=== PATIENT | female | born 1980 | race Two or more races ===

== ENCOUNTER → 2023-02-14 | Emergency (ER) | payer OTHER ==
[~2023-02-14] VITALS: Ht 157.5 cm; Wt 93.9 kg
[~2023-02-14] MED LIST: CAPTOPRIL50 MG PO; LABETALOL 21 MG/1 ML IV
== END | disposition home or self-care (01) ==
LOC: ER 11:19
DX: T78.1XXA Other adverse food reactions, not elsewhere classified, initial encounter (principal); X58.XXXA Exposure to other specified factors, initial encounter; B00.9 Herpesviral infection, unspecified

== ENCOUNTER 2023-08-27 16:52 | Emergency (ER) | payer OTHER ==
[~2023-08-27] VITALS: Ht 157.5 cm; Wt 89.8 kg
[2023-08-27 18:29] LABS: HEMOGLOBIN 13.6 g/dL (12.0-15.00); MEAN CELL VOLUME 82.3 fL (80.00-100.00); PLATELET COUNT 295 K/uL (150-450); RED BLOOD COUNT 4.86 M/uL (4.00-6.00); RED CELL DISTRIBUTION WIDTH 14.7 % (11.5-14.5)
[2023-08-27] MEDS ORDERED: MEDROLPACK PO (19:56)
[2023-08-27] MEDS ORDERED: ZITHROMAX500 MG PO (19:56)
[2023-08-28] MEDS ORDERED: XOPENEX CO1.25 MG/0. IH (17:57)
[2023-08-28] MEDS ORDERED: ONDANSETRON HCL4 MG PO (17:57)
[2023-08-28] MEDS ORDERED: PEPCID AC20 MG PO (17:57)
[2023-08-28] MEDS ORDERED: IPRATROPIU0.2 MG/1 M IH (17:57)
== END 2023-08-27 20:19 | disposition home or self-care (01) ==
LOC: ER 16:53
PROVIDERS: General Practice
DX: J45.901 Unspecified asthma with (acute) exacerbation (principal); R06.02 Shortness of breath; R05.8 Other specified cough; I10 Essential (primary) hypertension

== ENCOUNTER 2023-08-28 11:56 | Emergency (ER) | payer OTHER ==
[~2023-08-28] VITALS: Ht 157.5 cm; Wt 89.4 kg
[~2023-08-28 11:56] MED LIST changes: +MEDROLPACK PO; +ZITHROMAX500 MG PO
[2023-08-28 16:21] LABS: URINE APPEARANCE Clear; URINE BILIRRUBIN Negative (NEGATIVE); URINE COLOR Yellow; URINE GLUCOSE Negative (NEGATIVE); URINE LEUKOCYTE Negative; URINE NITRATE Negative; URINE PROTEIN Negative (NEGATIVE); URINE UROBILINOGEN 0.2 E.U./dl
[2023-08-28 16:23] LABS: URINE BACTERIA 192.7 uL (0.0-1933); URINE EPITHELIAL CELLS 10.5 uL (0.0-38.8); URINE RBC 13.2 uL (0.0-20.8); URINE WBC 4.1 uL (0.0-23.2)
[2023-08-28 16:24] LABS: URINE BLOOD TRACES
[2023-08-28 16:46] LABS: CALCIUM 9.8 mg/dL (8.5-10.1); CREATININE SERUM 0.7 mg/dL (0.55-1.02); GFR 92.68; POTASSIUM 3.83 mEq/L (3.5-5.1)
[2023-08-28] MEDS ORDERED: XOPENEX CO1.25 MG/0. IH (17:57)
[2023-08-28] MEDS ORDERED: IPRATROPIU0.2 MG/1 M IH (17:57)
[2023-08-28] MEDS ORDERED: PEPCID AC20 MG PO (17:57)
[2023-08-28] MEDS ORDERED: ONDANSETRON HCL4 MG PO (17:57)
== END 2023-08-28 22:55 | disposition home or self-care (01) ==
LOC: ER 11:56
PROVIDERS: Nurse Practitioner Family
DX: R73.9 Hyperglycemia, unspecified (principal); J45.909 Unspecified asthma, uncomplicated

== ENCOUNTER 2023-09-03 11:21 | Emergency (ER) | payer OTHER ==
[~2023-09-03] VITALS: Ht 157.5 cm; Wt 89.4 kg
[~2023-09-03 11:21] MED LIST changes: +IPRATROPIU0.2 MG/1 M IH; +ONDANSETRON HCL4 MG PO; +PEPCID AC20 MG PO; +XOPENEX CO1.25 MG/0. IH
[2023-09-03 14:10] LABS: HEMATOCRIT 40.5 % (36.0-45.00); HEMOGLOBIN 13.6 g/dL (12.0-15.00); MEAN CELL VOLUME 83.3 fL (80.00-100.00); MEAN CORPUSCULAR HEMOGLOBIN 27.9 pg (27.00-32.0); MEAN CORPUSCULAR HGB CONC 33.5 g/dl (32.0-36.0); PLATELET COUNT 283 K/uL (150-450); RED BLOOD COUNT 4.87 M/uL (4.00-6.00); RED CELL DISTRIBUTION WIDTH 14.2 % (11.5-14.5)
[2023-09-03 14:44] LABS: ALBUMIN 3.4 gm/dL (3.4-5.0); BILIRUBIN TOTAL 0.44 mg/dL (0.3-1.2); CALCIUM 9.1 mg/dL (8.5-10.1); CREATININE SERUM 0.68 mg/dL (0.55-1.02); GFR 95.83; GLOBULINA 4.2 G/DL (2.4-3.5); POTASSIUM 3.75 mEq/L (3.5-5.1); TOTAL PROTEIN 7.6 gm/dL (6.4-8.2)
== END 2023-09-03 19:46 | disposition home or self-care (01) ==
LOC: ER 11:22
PROVIDERS: General Practice
DX: R53.81 Other malaise (principal); I16.9 Hypertensive crisis, unspecified; I10 Essential (primary) hypertension

== ENCOUNTER 2023-10-02 10:52 | Emergency (ER) | payer OTHER ==
[~2023-10-02] VITALS: Ht 157.5 cm; Wt 94.3 kg
[2023-10-02] MEDS ORDERED: HYZAAR 100-251 EACH (11:30)
[2023-10-02] MEDS ORDERED: CARDURA1 MG (11:31)
[2023-10-02 14:02] LABS: HEMATOCRIT 40.6 % (36.0-45.00); HEMOGLOBIN 13.7 g/dL (12.0-15.00); MEAN CELL VOLUME 81.4 fL (80.00-100.00); MEAN CORPUSCULAR HEMOGLOBIN 27.5 pg (27.00-32.0); MEAN CORPUSCULAR HGB CONC 33.8 g/dl (32.0-36.0); PLATELET COUNT 287 K/uL (150-450); RED BLOOD COUNT 4.98 M/uL (4.00-6.00); RED CELL DISTRIBUTION WIDTH 14.1 % (11.5-14.5)
[2023-10-02] MEDS ORDERED: MONTELUKAST SOD10 MG PO (14:52)
== END 2023-10-02 15:01 | disposition home or self-care (01) ==
LOC: ER 10:52
PROVIDERS: General Practice
DX: J06.9 Acute upper respiratory infection, unspecified (principal); I10 Essential (primary) hypertension; Z20.822 Contact with and (suspected) exposure to COVID-19

== ENCOUNTER 2023-10-11 11:02 | Emergency (ER) | payer OTHER ==
[~2023-10-11] VITALS: Ht 157.5 cm; Wt 92.5 kg
[~2023-10-11 11:02] MED LIST changes: +CARDURA1 MG; +HYZAAR 100-251 EACH; +MONTELUKAST SOD10 MG PO
[2023-10-11] MEDS ORDERED: CEFTRIAXONE SODIUM 1,000 MG VIAL IM STA (11:39)
== END 2023-10-11 13:34 | disposition home or self-care (01) ==
LOC: ER 11:02
DX: J06.9 Acute upper respiratory infection, unspecified (principal); J03.90 Acute tonsillitis, unspecified; R53.81 Other malaise; Z20.822 Contact with and (suspected) exposure to COVID-19; I10 Essential (primary) hypertension

== ENCOUNTER 2023-10-22 09:17 | Emergency (ER) | payer OTHER ==
[~2023-10-22] VITALS: Ht 157.5 cm; Wt 94.3 kg
[2023-10-22] MEDS ORDERED: COZAAR50 MG PO (09:27)
[2023-10-22] MEDS ORDERED: TOPROL XL100 M1 PO (09:27)
[2023-10-22] MEDS ORDERED: CARDURA1 MG PO (09:28)
[2023-10-22] MEDS ORDERED: KETOROLAC TROMETHAMINE 30 MG VIAL IM STA (10:18)
[2023-10-22] MEDS ORDERED: CEFTRIAXONE SODIUM 1,000 MG VIAL IM STA (10:18)
== END 2023-10-22 10:44 | disposition home or self-care (01) ==
LOC: ER 09:17
DX: J03.90 Acute tonsillitis, unspecified (principal)

== ENCOUNTER 2023-10-30 14:39 | Emergency (ER) | payer OTHER ==
[~2023-10-30] VITALS: Ht 152.4 cm; Wt 92.5 kg
[~2023-10-30 14:39] MED LIST changes: +CARDURA1 MG PO; +COZAAR50 MG PO; +TOPROL XL100 M1 PO
[2023-10-30 16:22] LABS: HEMATOCRIT 37.9 % (36.0-45.00); HEMOGLOBIN 12.8 g/dL (12.0-15.00); MEAN CELL VOLUME 81.8 fL (80.00-100.00); MEAN CORPUSCULAR HEMOGLOBIN 27.6 pg (27.00-32.0); MEAN CORPUSCULAR HGB CONC 33.8 g/dl (32.0-36.0); PLATELET COUNT 348 K/uL (150-450); RED BLOOD COUNT 4.63 M/uL (4.00-6.00); RED CELL DISTRIBUTION WIDTH 13.5 % (11.5-14.5)
[2023-10-30 16:24] LABS: PH,URINE 6.5 (5.0-8.0); URINE APPEARANCE Clear; URINE BILIRRUBIN Negative (NEGATIVE); URINE BLOOD Trace; URINE COLOR Yellow; URINE GLUCOSE Negative (NEGATIVE); URINE LEUKOCYTE Negative; URINE NITRATE Negative; URINE PROTEIN Negative (NEGATIVE); URINE UROBILINOGEN 0.2 E.U./dl
[2023-10-30 16:26] LABS: URINE BACTERIA 21.3 uL (0.0-1933); URINE EPITHELIAL CELLS 4.6 uL (0.0-38.8); URINE RBC 8.1 uL (0.0-20.8)
[2023-10-30 16:29] LABS: URINE WBC 0.6 uL (0.0-23.2)
[2023-10-30 16:35] LABS: CALCIUM 9.5 mg/dL (8.5-10.1); CREATININE SERUM 0.55 mg/dL (0.55-1.02); GFR 122.42; POTASSIUM 3.58 mEq/L (3.5-5.1)
== END 2023-10-30 18:11 | disposition home or self-care (01) ==
LOC: ER 14:39
PROVIDERS: General Practice
DX: R00.2 Palpitations (principal)

== ENCOUNTER 2023-11-07 00:35 | Emergency (ER) | payer OTHER ==
[~2023-11-07] VITALS: Ht 157.5 cm; Wt 92.5 kg
== END 2023-11-07 03:00 ==
LOC: ER 00:35
DX: R00.2 Palpitations (principal)

== ENCOUNTER 2023-11-14 09:13 | Emergency (ER) | payer OTHER ==
[~2023-11-14] VITALS: Ht 157.5 cm; Wt 92.5 kg
== END 2023-11-14 10:19 | disposition home or self-care (01) ==
LOC: ER 09:13
DX: R00.2 Palpitations (principal); I10 Essential (primary) hypertension

== ENCOUNTER → 2023-11-20 | Emergency (ER) | payer OTHER ==
[~2023-11-20] VITALS: Ht 157.5 cm; Wt 92.5 kg
== END | disposition left against medical advice (07) ==
LOC: ER 16:23
DX: Z53.21 Procedure and treatment not carried out due to patient leaving prior to being seen by health care provider (principal)

== ENCOUNTER 2023-11-22 19:44 | Emergency (ER) | payer OTHER ==
[~2023-11-22] VITALS: Ht 152.4 cm; Wt 68.0 kg
== END 2023-11-22 21:49 | disposition home or self-care (01) ==
LOC: ER 19:45
DX: R00.1 Bradycardia, unspecified (principal)

== ENCOUNTER 2023-12-12 10:51 | Emergency (ER) | payer OTHER ==
[~2023-12-12] VITALS: Ht 157.5 cm; Wt 92.5 kg
[2023-12-12 13:38] LABS: HEMATOCRIT 39.7 % (36.0-45.00); HEMOGLOBIN 13.3 g/dL (12.0-15.00); MEAN CELL VOLUME 81.2 fL (80.00-100.00); MEAN CORPUSCULAR HEMOGLOBIN 27.1 pg (27.00-32.0); MEAN CORPUSCULAR HGB CONC 33.4 g/dl (32.0-36.0); PLATELET COUNT 304 K/uL (150-450); RED BLOOD COUNT 4.89 M/uL (4.00-6.00); RED CELL DISTRIBUTION WIDTH 14.1 % (11.5-14.5)
[2023-12-12 14:04] LABS: ALBUMIN 3.4 gm/dL (3.4-5.0); BILIRUBIN TOTAL 0.21 mg/dL (0.3-1.2); CALCIUM 8.6 mg/dL (8.5-10.1); CREATININE SERUM 0.53 mg/dL (0.55-1.02); GFR 127.12; GLOBULINA 4.2 G/DL (2.4-3.5); POTASSIUM 3.31 mEq/L (3.5-5.1); TOTAL PROTEIN 7.6 gm/dL (6.4-8.2)
== END 2023-12-12 15:24 | disposition home or self-care (01) ==
LOC: ER 10:51
PROVIDERS: General Practice
DX: I10 Essential (primary) hypertension (principal); G47.30 Sleep apnea, unspecified

== ENCOUNTER 2024-06-11 09:34 | Emergency (ER) | payer OTHER ==
[~2024-06-11] VITALS: Ht 157.5 cm; Wt 93.9 kg
[2024-06-11] MEDS ORDERED: LEVALBUTEROL HCL 1.25 MG/3 ML SOLUTION IH ONE (10:45)
[2024-06-11] MEDS ORDERED: IPRATROPIUM BROMIDE 0.5 MG/2.5 ML AMPUL.NEB IH ONE (10:45)
[2024-06-11] MEDS ORDERED: BENZONATATE 100 MG CAPSULE PO ONE (10:45)
[2024-06-11 12:04] LABS: HEMATOCRIT 41.3 % (36.0-45.00); MEAN CELL VOLUME 82.7 fL (80.00-100.00); MEAN CORPUSCULAR HGB CONC 33.9 g/dl (32.0-36.0); PLATELET COUNT 266 K/uL (150-450); RED BLOOD COUNT 4.99 M/uL (4.00-6.00); RED CELL DISTRIBUTION WIDTH 13.9 % (11.5-14.5)
[2024-06-11] MEDS ORDERED: LEVALBUTER0.63 MG/3 IH (12:53)
[2024-06-11] MEDS ORDERED: PEPCID AC20 MG PO (12:53)
[2024-06-11] MEDS ORDERED: BENZONATATE200 M1 PO (12:53)
== END 2024-06-11 13:03 | disposition home or self-care (01) ==
LOC: ER 09:35
PROVIDERS: General Practice
DX: J45.901 Unspecified asthma with (acute) exacerbation (principal); I10 Essential (primary) hypertension; G47.39 Other sleep apnea; Z20.822 Contact with and (suspected) exposure to COVID-19

== ENCOUNTER 2024-06-18 08:36 | Emergency (ER) | payer OTHER ==
[~2024-06-18] VITALS: Ht 157.5 cm; Wt 93.9 kg
[~2024-06-18 08:36] MED LIST changes: +BENZONATATE200 M1 PO; +LEVALBUTER0.63 MG/3 IH
[2024-06-18 09:10] VITALS: BP 138/88; O2SAT 96
[2024-06-18] MEDS ORDERED: GUAIFENESIN/DEXTROMETHORPHAN 10ML BLIST.PACK PO ONE (09:30)
[2024-06-18] MEDS ORDERED: HYDROCORTISONE SODIUM SUCC/PF 100 MG VIAL IV ONE (09:30)
[2024-06-18] MEDS ORDERED: LEVALBUTEROL HCL 1.25 MG/3 ML SOLUTION IH SCH (09:30)
[2024-06-18 10:14] LABS: ABG PH 7.402 (7.35-7.45); ABG PO2 90.7 mmHg (80-100); ABG pCO2 44.1 mmHg (35-45); BASE EXCESS 1.7 mmol/l; BICARBONATE 26.9 mmol/l (23-25); Tco2 28.2 mmol/l; o2 21 %; puncture site RADIAL RIGHT
[2024-06-18 10:15] LABS: allen test SATISFACTORY
[2024-06-18 10:33] LABS: HEMATOCRIT 40.6 % (36.0-45.00); HEMOGLOBIN 13.6 g/dL (12.0-15.00); MEAN CELL VOLUME 81.5 fL (80.00-100.00); MEAN CORPUSCULAR HEMOGLOBIN 27.4 pg (27.00-32.0); MEAN CORPUSCULAR HGB CONC 33.6 g/dl (32.0-36.0); PLATELET COUNT 281 K/uL (150-450); RED BLOOD COUNT 4.98 M/uL (4.00-6.00); RED CELL DISTRIBUTION WIDTH 13.9 % (11.5-14.5)
[2024-06-18 10:59] LABS: ALBUMIN 3.4 gm/dL (3.4-5.0); BILIRUBIN TOTAL 0.3 mg/dL (0.3-1.2); CALCIUM 9.1 mg/dL (8.5-10.1); CREATININE SERUM 0.57 mg/dL (0.55-1.02); GFR 116.89; GLOBULINA 4.6 G/DL (2.4-3.5); POTASSIUM 3.77 mEq/L (3.5-5.1)
[2024-06-18] MEDS ORDERED: ZITHROMAX500 MG PO (11:15)
[2024-06-18] MEDS ORDERED: TUSNEL LIQUID178 ML PO (11:15)
[2024-06-18] MEDS ORDERED: XOPENEX CO1.25 MG/0. IH (11:15)
[2024-06-18] MEDS ORDERED: MEDROLPACK PO (11:15)
[2024-06-18] MEDS ORDERED: AMOX-CLAV 875-1 EACH PO (11:21)
[2024-06-19] MEDS ORDERED: KETO10TA2 PO (11:08)
== END 2024-06-18 12:05 | disposition home or self-care (01) ==
LOC: ER 08:38
PROVIDERS: General Practice
DX: J45.909 Unspecified asthma, uncomplicated (principal); I10 Essential (primary) hypertension; E11.9 Type 2 diabetes mellitus without complications; Z20.822 Contact with and (suspected) exposure to COVID-19

== ENCOUNTER → 2024-06-19 | Emergency (ER) | payer OTHER ==
[~2024-06-19] VITALS: Ht 157.5 cm; Wt 93.9 kg
[~2024-06-19] MED LIST changes: +AMOX-CLAV 875-1 EACH PO; +KETO10TA2 PO; +KETOROLAC TROMETHAMINE 60 MG VIAL IM ONE; +TUSNEL LIQUID178 ML PO
== END | disposition home or self-care (01) ==
LOC: ER 10:15
DX: M54.9 Dorsalgia, unspecified (principal); I10 Essential (primary) hypertension

== ENCOUNTER 2024-10-29 13:50 | Emergency (ER) | payer OTHER ==
[~2024-10-29] VITALS: Ht 157.5 cm; Wt 92.1 kg
[~2024-10-29 13:50] MED LIST changes: -KETOROLAC TROMETHAMINE 60 MG VIAL IM ONE
[2024-10-29 14:31] VITALS: BP 145/86; O2SAT 97
[2024-10-29] MEDS ORDERED: GUAIFENESIN/DEXTROMETHORPHAN 100MG/10ML BLIST.PACK PO ONE ×2 (15:15→15:18)
[2024-10-29] MEDS ORDERED: BUTALB/ACETAMINOPHEN/CAFFEINE 1 TAB TABLET PO ONE ×2 (15:15→16:10)
[2024-10-29 16:34] LABS: HEMATOCRIT 42.2 % (36.0-45.00); HEMOGLOBIN 13.7 g/dL (12.0-15.00); MEAN CELL VOLUME 81.6 fL (80.00-100.00); MEAN CORPUSCULAR HEMOGLOBIN 26.5 pg (27.00-32.0); MEAN CORPUSCULAR HGB CONC 32.4 g/dl (32.0-36.0); PLATELET COUNT 244 K/uL (150-450); RED BLOOD COUNT 5.17 M/uL (4.00-6.00); RED CELL DISTRIBUTION WIDTH 14.5 % (11.5-14.5)
[2024-10-29] MEDS ORDERED: TUSSIN DM LIQU118 ML PO (18:03)
[2024-10-29] MEDS ORDERED: ALBUTEROL1.25 MG/3 IH (18:03)
[2024-10-29] MEDS ORDERED: AMOX-CLAV 875-1 EAC1 PO (18:03)
[2024-10-29] MEDS ORDERED: BUDESONIDE0.5 MG/2 M IH (18:03)
[2024-10-29] MEDS ORDERED: XOPENEX CO1.25 MG/0. IH (18:09)
== END 2024-10-29 18:16 | disposition home or self-care (01) ==
LOC: ER 13:53
PROVIDERS: General Practice
DX: B34.9 Viral infection, unspecified (principal); R53.81 Other malaise; E03.8 Other specified hypothyroidism; Z20.822 Contact with and (suspected) exposure to COVID-19

== ENCOUNTER 2025-06-09 09:17 | Emergency (ER) | payer OTHER ==
[~2025-06-09] VITALS: Ht 157.5 cm; Wt 89.4 kg
[~2025-06-09 09:17] MED LIST changes: +ALBUTEROL1.25 MG/3 IH; +AMOX-CLAV 875-1 EAC1 PO; +BUDESONIDE0.5 MG/2 M IH; +TUSSIN DM LIQU118 ML PO
[2025-06-09] MEDS ORDERED: 0.9 % SODIUM CHLORIDE 1,000 ML IV STA (10:46)
[2025-06-09] MEDS ORDERED: ONDANSETRON HCL 2 MG/ML VIAL ONE (10:52)
[2025-06-09] MEDS ORDERED: KETOROLAC TROMETHAMINE 30 MG VIAL ONE (10:52)
[2025-06-09] MEDS ORDERED: KETOROLAC TROMETHAMINE 30 MG VIAL IU ONE (11:00)
[2025-06-09] MEDS ORDERED: FAMOTIDINE/PF 20 MG/2 ML VIAL IV ONE (11:00)
[2025-06-09] MEDS ORDERED: ONDANSETRON HCL 2 MG/ML VIAL IV ONE (11:00)
[2025-06-09 11:30] LABS: BASO % 0.4 % (0.1-1.2); EOS # 0.18 (0.04-0.54); EOS % 1.7 % (0.7-7.0); LYMPH # 2.12 (1.18-3.74); LYMPH % 20.2 % (19.3-53.1); MEAN PLATELET VOLUME 9.50 fl (9.4-12.4); MONO # 0.94 (0.24-0.82); MONO % 9.0 % (4.7-12.5); NEUT # 7.14 (1.56-6.13); NEUT % 68.1 % (34.0-71.1); RED CELL DISTRIBUTION WIDTH 14.0 % (11.6-14.4)
[2025-06-09 11:41] LABS: URINE APPEARANCE Clear; URINE BILIRRUBIN Negative (NEGATIVE); URINE BLOOD Moderate; URINE COLOR Yellow; URINE GLUCOSE Negative (NEGATIVE); URINE KETONE Negative (NEGATIVE); URINE LEUKOCYTE Negative; URINE NITRATE Negative; URINE PROTEIN Negative (NEGATIVE); URINE UROBILINOGEN 1.0 E.U./dl
[2025-06-09 11:44] LABS: URINE BACTERIA 3176.4 uL (0.0-1933); URINE EPITHELIAL CELLS 29.8 uL (0.0-38.8); URINE RBC 150.3 uL (0.0-20.8); URINE WBC 10.7 uL (0.0-23.2)
[2025-06-09 11:49] LABS: URINE CAST 0.14 uL (0.0-1.40)
[2025-06-09 12:22] LABS: BUN CREA RATIO 17.0 (7.0-25.0); CREATININE SERUM 0.52 mg/dL (0.55-1.02); GFR 129.32; GLUCOSE FASTING 133.0 mg/dL (65-100); OSMOLALITY SERUM 284.0 MOSM/KG (275-295)
[2025-06-09] MEDS ORDERED: KETO10TA2 PO (14:12)
[2025-06-09] MEDS ORDERED: CIPRO500 MG PO (14:12)
[2025-06-09] MEDS ORDERED: TAMS0.4C PO (14:12)
== END 2025-06-09 15:58 | disposition home or self-care (01) ==
LOC: ER 09:17
PROVIDERS: General Practice
DX: N23 Unspecified renal colic (principal); I10 Essential (primary) hypertension